=== PATIENT | female | born 1960 | race Caucasian/White ===

== ENCOUNTER 2018-08-24 10:27 | Inpatient (IN) ==
[2018-08-24 11:33] LABS: Baso % (Auto) 0.4 % (0.0-2.0); Eos % (Auto) 0.2 % (0.0-4.0); Hematocrit 35.6 % (35.0-46.0); Hemoglobin 11.3 gm/dL (11.6-15.3); Lymph # (Auto) 1.8 th/mm3 (1.0-4.8); Lymph % (Auto) 19.5 % (9.0-44.0); Mean Corpuscular HGB Conc 31.8 % (32.0-36.0); Mean Corpuscular Hemoglobin 25.4 pg (27.0-34.0); Mean Corpuscular Volume 79.9 fL (80.0-100.0); Mean Platelet Volume 7.7 fL (7.0-11.0); Mono # (Auto) 0.6 th/mm3 (0.0-0.9); Mono % (Auto) 6.8 % (0.0-8.0); Neut # (Auto) 6.6 th/mm3 (1.8-7.7); Neut % (Auto) 73.1 % (16.0-70.0); Platelet Count 334 th/mm3 (150-450); Red Blood Count 4.46 mil/mm3 (4.00-5.30); Red Cell Distribution Width 14.9 % (11.6-17.2)
[2018-08-24] MEDS: dilTIAZem Inj 125 MG in Sodium Chlor 0.9% Inj 100 ML IV.CONT PRN ×2 (11:35→22:23)
[2018-08-24 11:53] LABS: Bacteria,Urine Rare /hpf; Bilirubin,Urine Negative (Negative); Clarity,Urine Hazy (Clear); Color,Urine Yellow (Yellw/Straw); Glucose,Urine (UA) Negative (Negative); Hyaline Casts,Urine 7 /lpf (0-3); Leukocyte Esterase,Urine Negative (Negative); Mucus,Urine Few /lpf (Occasional); Nitrite,Urine Negative (Negative); Specific Gravity,Urine 1.013 (1.002-1.035); Squamous Epithelial Cell,Urine 8 /hpf (0-5)
[2018-08-24 11:53] LABS: Albumin 3.5 g/dL (3.4-5.0); Anion Gap 12 meq/L (5-15); Aspartate Aminotransferase 27 U/L (15-37); Blood Urea Nitrogen 10 mg/dL (7-18); Calcium 8.8 mg/dL (8.5-10.1); Carbon Dioxide 22.5 meq/L (21.0-32.0); Chloride 107 meq/L (98-107); Glomerular Filtration Rate Greater Than 89 mL/min (>89); Glucose,Random 90 mg/dL (74-106); Potassium 4.2 meq/L (3.5-5.1); Sodium 141 meq/L (136-145)
[2018-08-24 11:54] LABS: Alanine Aminotransferase 27 U/L (10-53)
[2018-08-24 11:58] LABS: Alkaline Phosphatase 166 U/L (45-117); Total Protein 7.5 g/dL (6.4-8.2)
[2018-08-24 12:00] LABS: Creatine Kinase 30 U/L (26-192)
--- NOTE | 2018-08-24 12:24 | XR ---
EXAM DATE: 08/24/2018 12:18 PM EDT AGE/SEX: 58 years / Female INDICATIONS: Shortness of breath. CLINICAL DATA: This is the patient's initial encounter. Patient reports that signs and symptoms have been present for 3 days and indicates a pain score of 0/10. MEDICAL/SURGICAL HISTORY: None. None. COMPARISON: No prior exams available for comparison. FINDINGS: Cardiomegaly. Clear lungs. Osseous structures are intact. CONCLUSION: Clear lungs. Electronically signed by: Conrad Davis MD 08/24/2018 12:23 PM EDT
[2018-08-24] MEDS ORDERED: Enoxaparin Inj 100 MG/ML Syringe SQ SCH (13:15)
--- NOTE | 2018-08-24 13:44 | P.HPIM ---
History of Present Illness Primary Care Physician: No Primary Care Physician Chief Complaint: Shortness of breath History of Present Illness: 58-year-old white female with no past medical history presents emergency room with a 2-1/2 history of worsening shortness of breath with exertion. She denies any associated palpitations nor chest pains with these symptoms. She has not had any associated dizziness nor any diaphoresis with the symptoms. She denies any underlying cough nor any chills or fevers. She also reports 2- week history of increasing swelling of the lower extremities. She denies symptoms of PND and reports that she does sleep in a angle but for chronically to relieve heartburn. She denies any previous cardiac history. - Diagnosis (1) Atrial fibrillation, new onset (2) Hypertensive urgency (3) Morbid obesity Review of Systems All other systems reviewed negative except as stated in HPI PMFSH - History History Provided By: Patient - Medical History Medical History: Medical History (Last Updated 08/24/18 @ 11:05 by Monse Zhang) Patient denies medical problems - Surgical History Surgical History: Surgical History (Last Updated 08/24/18 @ 11:05 by Monse Zhang) Hx of tonsillectomy - Family History Family History: Family History (Last Updated 08/24/18 @ 13:37 by Renetta Leon MD) Other Family history not known due to adoption - Social History I have reviewed the patient's Social History: Yes - Tobacco History Second Hand Smoke Exposure: No Smoking Status: Never smoker - Alcohol History How Often Do You Have a Drink Containing Alcohol: 2 to 4 times a month - Travel History Recent Travel in the [place] Within the Last 8 Weeks: No Recent Travel Out of the Country Within the Last 8 Weeks: No - Immunization History Tetanus Immunization: Unsure Medications and Allergies Active Medications: Active Medications Aspirin (Aspirin Chew) 81 mg PO DAILY JAVIER Enoxaparin Sodium (Lovenox Inj) 140 mg SQ Q12H JAVIER Diltiazem HCl 125 mg/ Sodium (Chloride) 125 mls @ 5 mls/hr IV.CONT TITRATE PRN ; Protocol PRN Reason: Per Protocol Last Titration: 08/24/18 12:16 Dose: 10 mg/hr, 10 mls/hr Metoprolol Tartrate (Lopressor) 25 mg PO BID JAVIER Sodium Chloride (Ns Flush) 2 ml IV.FLUSH BID JAVIER Sodium Chloride (Ns Flush) 2 ml IV.FLUSH PRN PRN PRN Reason: FLUSH AFTER USING IV ACCESS Allergies Allergy/AdvReac Type Severity Reaction Status Date / Time No Known Allergies Allergy Verified 08/24/18 11:04 Home Medications Medication Instructions Recorded Confirmed Type biotin 1,000 mcg PO DAILY 08/24/18 08/24/18 History Exam Vital signs: Vital Signs 08/24/18 10:29 08/24/18 10:34 08/24/18 11:07 Temperature 98.5 F Pulse Rate 136 H 108 H Respiratory Rate 20 18 Blood Pressure 231/91 H 185/73 H Pulse Oximetry 96 96 98 Intake & Output 08/23/18 08/24/18 08/24/18 18:59 06:59 18:59 Weight 136.078 kg Narrative: GENERAL: Well-nourished well-developed obese white female laying in a stretcher sitting up in no acute distress SKIN: Warm and dry. HEAD: Atraumatic. Normocephalic. EYES: Pupils equal and round. No scleral icterus. No injection or drainage. ENT: No nasal bleeding or discharge. Mucous membranes pink and moist. NECK: Trachea midline. No JVD. CARDIOVASCULAR: Irregular rate and tachycardic rhythm. RESPIRATORY: No accessory muscle use. Clear to auscultation. Breath sounds equal bilaterally. GASTROINTESTINAL: Abdomen soft, non-tender, nondistended. Hepatic and splenic margins not palpable. Normoactive bowel sounds MUSCULOSKELETAL: Extremities without clubbing, cyanosis, 1+ edema NEUROLOGICAL: Awake and alert to person place time situation. No obvious cranial nerve deficits. Motor grossly within normal limits. Five out of 5 muscle strength in the arms and legs. Normal speech. PSYCHIATRIC: Appropriate mood and affect; insight and judgment normal. Results - Labs CBC & Chem 7: 08/24/18 11:14 08/24/18 11:14 Labs: Short CBC 08/24/18 Range/Units 11:14 WBC 9.0 (4.0-11.0) th/mm3 Hgb 11.3 L (11.6-15.3) gm/dL Hct 35.6 (35.0-46.0) % Plt Count 334 (150-450) th/mm3 BMP 08/24/18 11:14 Sodium 141 Potassium 4.2 Chloride 107 Carbon Dioxide 22.5 BUN 10 Creatinine 0.54 Calcium 8.8 Cardiac Enzymes 08/24/18 Range/Units 11:14 Total Creatine Kinase 30 (26-192) U/L Troponin I Less than 0.02 L (0.02-0.05) ng/mL Liver Function 08/24/18 Range/Units 11:14 Total Bilirubin 0.7 (0.2-1.0) mg/dL AST 27 (15-37) U/L ALT 27 (10-53) U/L Alkaline Phosphatase 166 H (45-117) U/L Albumin 3.5 (3.4-5.0) g/dL Urine 08/24/18 Range/Units 11:30 Urine Color Yellow (Yellw/Straw) Urine Clarity Hazy H (Clear) Urine pH 5.0 (5.0-8.5) Ur Specific [place] 1.013 (1.002-1.035) Urine Protein 30 H (Neg-Trace) mg/dL Urine Glucose (UA) Negative (Negative) mg/dL - Imaging Impressions Chest X-Ray 08/24/18 11:07 CONCLUSION: Clear lungs. - ECG Attestation: I personally reviewed and interpreted this ECG as follows: Prior ECG tracings: not available for review Interpretation: Atrial fibrillation rapid ventricular response 136 Caprini VTE Risk Assessment Caprini VTE Risk Assessment: Moderate/High Risk (score >= 2) Caprini Risk Assessment Model: Point Value = 1 Point Value = 2 Point Value = 3 Point Value = 5 Age 41-60 Minor surgery BMI > 25 kg/m2 Swollen legs Varicose veins or History of unexplained or recurrent spontaneous Oral contraceptives or hormone replacement Sepsis (< 1 month) Serious lung disease, including pneumonia (< 1 month) Abnormal pulmonary function Acute myocardial infarction Congestive heart failure (< 1 month) History of inflammatory bowel disease Medical patient at bed rest Age 61-74 Arthroscopic surgery Major open surgery (> 45 min) Laparoscopic surgery (> 45 min) Malignancy Confined to bed (> 72 hours) Immobilizing plaster cast Central venous access Age >= 75 History of VTE Family history of VTE Factor V Leiden Prothrombin [id number] Lupus anticoagulant Anticardiolipin antibodies Elevated serum homocysteine Heparin-induced thrombocytopenia Other congenital or acquired thrombophilia Stroke (< 1 month) Elective arthroplasty Hip, pelvis, or leg fracture Acute spinal cord injury (< 1 month) Prophylaxis Regimen: Total Risk Factor Score Risk Level Prophylaxis Regimen 0-1 Low Early ambulation 2 Moderate Order ONE of the following: *Sequential Compression Device (SCD) *Heparin 5000 units SQ BID 3-4 Higher Order ONE of the following medications: *Heparin 5000 units SQ TID *Enoxaparin/Lovenox 40 mg SQ daily (WT < 150 kg, CrCl > 30 mL/min) *Enoxaparin/Lovenox 30 mg SQ daily (WT < 150 kg, CrCl > 10-29 mL/min) *Enoxaparin/Lovenox 30 mg SQ BID (WT < 150 kg, CrCl > 30 mL/min) AND/OR *Sequential Compression Device (SCD) 5 or more Highest Order ONE of the following medications: *Heparin 5000 units SQ TID (Preferred with Epidurals) *Enoxaparin/Lovenox 40 mg SQ daily (WT < 150 kg, CrCl > 30 mL/min) *Enoxaparin/Lovenox 30 mg SQ daily (WT < 150 kg, CrCl > 10-29 mL/min) *Enoxaparin/Lovenox 30 mg SQ BID (WT < 150 kg, CrCl > 30 mL/min) AND *Sequential Compression Device (SCD) Assessment and Plan - Assessment (1) Atrial fibrillation, new onset Code(s): I48.91 - Unspecified atrial fibrillation Status: Acute (2) Hypertensive urgency Code(s): I16.0 - Hypertensive urgency Status: Acute (3) Morbid obesity Code(s): E66.01 - Morbid (severe) obesity due to excess calories Status: Chronic - Plan 58-year-old white female with no past medical history presents emergency room with a 2-1/2 history of increased shortness of breath 1. New onset of atrial fibrillation with rapid ventricular rate. Cardizem drip has been initiated for rate control. Consult cardiology for further recommendations. Will obtain serial cardiac enzymes, start metoprolol p.o., Lovenox. 2. Hypertensive urgency -Cardizem drip has been initiated, will also start p.o. lisinopril. 3. Morbid obesityweight loss counseling 4. mild microcytic anemia-check iron panel, monitor hemoglobin on anticoagulation 4. DVT prophylaxisLovenox
[2018-08-24] MEDS ORDERED: Enoxaparin Inj 150 MG/ML Syringe SQ SCH (13:45)
[2018-08-24] MEDS ORDERED: Bisacodyl 10 MG Supp RECTAL PRN (13:46)
[2018-08-24] MEDS: Lisinopril 10 MG Tablet PO SCH (14:20)
--- NOTE | 2018-08-24 14:45 | ED ---
HPI General Chief Complaint: Shortness of Breath/Dyspnea Stated Complaint: SOB Time Seen by Provider: 08/24/18 10:48 History of Present Illness This is a 58-year-old female with no significant past medical history, presents today with complaints of 2-1/2 weeks of shortness of breath and dyspnea on exertion. Patient denies any chest pain, chest pressure. She denies any palpitations. She states that over the last 2 and half weeks she can only walk 20 feet before becoming short of breath. The patient was noted to have a heart rate in the 140s in triage. She is also noted to be hypertensive. She denies any headache. She denies any dizziness. There are no other complaints. Related Data Home Medications Medication Instructions Recorded Confirmed biotin 1,000 mcg PO DAILY 08/24/18 08/24/18 Allergies Allergy/AdvReac Type Severity Reaction Status Date / Time No Known Allergies Allergy Verified 08/24/18 11:04 Review of Systems ROS: all other systems reviewed are negative Constitutional Reports chills Eyes Reports system reviewed and no additional complaints, except as docu ENT Reports system reviewed and no additional complaints, except as docu Cardiovascular Reports pedal edema, Reports edema, Reports irregular heart rhythm and Reports dyspnea Respiratory Denies chest congestion, Denies cough, Denies pain on inspiration, Reports dyspnea and Reports dyspnea on exertion Gastrointestinal Reports system reviewed and no additional complaints, except as docu Genitourinary Reports system reviewed and no additional complaints, except as docu Musculoskeletal Denies back pain and Denies neck pain Neurologic Reports system reviewed and no additional complaints, except as docu [facility] Medical History Medical History Patient denies medical problems (Acute) Surgical History Surgical History Hx of tonsillectomy (Acute) Family History Family History Other Family history not known due to adoption Social History Social History Second Hand Smoke Exposure: No Smoking Status: Never smoker How Often Do You Have a Drink Containing Alcohol: 2 to 4 times a month Recent Travel in USA within the Last 8 Weeks: No Recent Out of Country Travel within the Last 8 Weeks: No Immunization History Tetanus Immunization: Unsure Exam Narrative Exam Narrative: GENERAL: Obese female in no acute respiratory distress. SKIN: Focused skin assessment warm/dry. HEAD: Atraumatic. Normocephalic. EYES: No scleral icterus. No injection or drainage. ENT: No nasal bleeding or discharge. Mucous membranes pink and moist. NECK: Trachea midline. No obvious JVD. Supple. CARDIOVASCULAR: Irregularly regular with a rate in the 140s. No murmur appreciated. RESPIRATORY: No accessory muscle use. Clear to auscultation. Breath sounds equal bilaterally. GASTROINTESTINAL: Abdomen soft, non-tender, nondistended. Hepatic and splenic margins not palpable. MUSCULOSKELETAL: No obvious deformities. No clubbing. No cyanosis. No edema. NEUROLOGICAL: Awake and alert. No obvious cranial nerve deficits. Motor grossly within normal limits. Normal speech. Course Initial Documented Vital Signs Temperature 98.5 F 08/24/18 10:29 Pulse Rate 136 H 08/24/18 10:29 Respiratory Rate 20 08/24/18 10:29 Blood Pressure 231/91 H 08/24/18 10:29 Pulse Oximetry 96 08/24/18 10:29 Last Documented Vital Signs Temperature 98.5 F 08/24/18 10:29 Pulse Rate 108 H 08/24/18 10:34 Respiratory Rate 18 08/24/18 10:34 Blood Pressure 185/73 H 08/24/18 10:34 Pulse Oximetry 98 08/24/18 11:07 Medical Decision Making [facility] Narrative Medical decision making narrative: 58-year-old female presents today with complaints of shortness of breath times 2-1/2 weeks. Patient has new onset A. fib with RVR. Patient also had uncontrolled hypertension. She has been started on a diltiazem drip. Her heart rates come down into the low 100s. She was discussed with Dr. Elena Leon. She will have further studies when and admitted. Medical Screen Exam Complete: Yes Emergency Medical Condition: Yes Differential Diagnosis Differential Diagnosis: New onset A. fib versus hypertensive urgency versus metabolic derangement Lab Data Result diagrams: 08/24/18 11:14 08/24/18 11:14 Lab Results 08/24/18 08/24/18 08/24/18 Range/Units 11:14 11:14 11:30 WBC 9.0 (4.0-11.0) th/mm3 RBC 4.46 (4.00-5.30) mil/mm3 Hgb 11.3 L (11.6-15.3) gm/dL Hct 35.6 (35.0-46.0) % MCV 79.9 L (80.0-100.0) fL MCH 25.4 L (27.0-34.0) pg MCHC 31.8 L (32.0-36.0) % RDW 14.9 (11.6-17.2) % Plt Count 334 (150-450) th/mm3 MPV 7.7 (7.0-11.0) fL Neut % (Auto) 73.1 H (16.0-70.0) % Lymph % (Auto) 19.5 (9.0-44.0) % [place] % (Auto) 6.8 (0.0-8.0) % Eos % (Auto) 0.2 (0.0-4.0) % Baso % (Auto) 0.4 (0.0-2.0) % Neut # (Auto) 6.6 (1.8-7.7) th/mm3 Lymph # (Auto) 1.8 (1.0-4.8) th/mm3 [place] # (Auto) 0.6 (0.0-0.9) th/mm3 Eos # (Auto) 0.0 (0.0-0.4) th/mm3 Baso # (Auto) 0.0 (0.0-0.2) th/mm3 WBC Differential . Differential Comment Auto diff final Sodium 141 (136-145) meq/L Potassium 4.2 (3.5-5.1) meq/L Chloride 107 (98-107) meq/L Carbon Dioxide 22.5 (21.0-32.0) meq/L Anion Gap 12 (5-15) meq/L BUN 10 (7-18) mg/dL Creatinine 0.54 (0.50-1.00) mg/dL Estimated GFR Greater than 89 (>89) mL/min Random Glucose 90 (74-106) mg/dL Calcium 8.8 (8.5-10.1) mg/dL Total Bilirubin 0.7 (0.2-1.0) mg/dL AST 27 (15-37) U/L ALT 27 (10-53) U/L Alkaline Phosphatase 166 H (45-117) U/L Total Creatine Kinase 30 (26-192) U/L Troponin I Less than 0.02 L (0.02-0.05) ng/mL Total Protein 7.5 (6.4-8.2) g/dL Albumin 3.5 (3.4-5.0) g/dL Urine Color Yellow (Yellw/Straw) Urine Clarity Hazy H (Clear) Urine pH 5.0 (5.0-8.5) Ur Specific [place] 1.013 (1.002-1.035) Urine Protein 30 H (Neg-Trace) mg/dL Urine Glucose (UA) Negative (Negative) mg/dL Urine Ketones Negative (Negative) mg/dL Urine Occult Blood Small H (Negative) Urine Nitrate Negative (Negative) Urine Bilirubin Negative (Negative) Urine Urobilinogen Less than 2 (Less than 2) mg/dL Ur Leukocyte Esterase Negative (Negative) Urine RBC Less than 1 (0-3) /hpf Urine WBC 3 (0-5) /hpf Ur Squamous Epith Cells 8 (0-5) /hpf Urine Bacteria Rare H (None) /hpf Hyaline Casts 7 (0-3) /lpf Urine Mucus Few H (Occasional) /lpf Micro UA Comment Culture not ind Ur Microscopic Review Not Reportable Urine Culture Comments Culture not ind Imaging Data Radiologist's impression: Chest X-Ray 08/24/18 11:07 CONCLUSION: Clear lungs. Discharge Plan Discharge Disposition Patient Disposition: 30 Still Patient Discharge Details Diagnosis: Atrial fibrillation, new onset, Hypertensive urgency, Morbid obesity Physicians Team ED Provider: Gael Motley Primary Care Provider: Primary Care Inna Azevedo Attending Provider: Renetta Leon Other Providers: Chema Jane Discharge Interventions Interventions: Vital Signs Last Done: 08/24/18 10:34 Status ED Status: Admitted Patient
--- NOTE | 2018-08-24 16:37 | ECHRPT ---
Indication: AFIB/FLUTTER CONCLUSIONS Left ventricle is on the upper limits of normal. The left ventricular systolic function is low normal with an estimated ejection fraction in the rang e of 50- 55%. [id number] mitral valve regurgitation. There is trace tricuspid valve regurgitation. BP: / HR: Rhythm: Atrial fibrillation MEASUREMENTS (Male / Female) Normal Values Technical Quality:Technically difficult study 2D ECHO LV Diastolic Diameter PLAX 6.0 cm 4.2 - 5.9 / 3.9 - 5.3 cm LV Systolic Diameter PLAX 4.7 cm IVS Diastolic Thickness 1.0 cm 0.6 - 1.0 / 0.6 - 0.9 cm LVPW Diastolic Thickness 1.0 cm 0.6 - 1.0 / 0.6 - 0.9 cm LV Relative Wall Thickness 0.3 RV Internal Dim ED PLAX 2.6 cm LVOT Diameter 1.7 cm Aortic Root Diameter 2.7 cm LA Systolic Diameter LX 3.5 cm 3.0 - 4.0 / 2.7 - 3.8 cm M-MODE AV Cusp Separation MM 1.4 cm DOPPLER AV Peak Velocity 236.0 cm/s AV Peak Gradient 22.3 mmHg AV Mean Gradient 10.0 mmHg AV Velocity Time Integral 38.6 cm LVOT Peak Velocity 128.0 cm/s LVOT Peak Gradient 6.6 mmHg LVOT Velocity Time Integral 20.5 cm AV Area Cont Eq vti 1.2 cm AV Area Cont Eq pk 1.2 cm Mitral E Point Velocity 125.0 cm/s LV E' Lateral Velocity 11.3 cm/s Mitral E to LV E' Lateral Ratio 11.1 LV E' Septal Velocity 11.6 cm/s Mitral E to LV E' Septal Ratio 10.8 TR Peak Velocity 182.3 cm/s TR Peak Gradient 13.3 mmHg Right Atrial Pressure 10.0 mmHg Pulmonary Artery Systolic Pressu 23.3 mmHg Right Ventricular Systolic Press 23.3 mmHg PV Peak Velocity 107.0 cm/s PV Peak Gradient 4.6 mmHg FINDINGS LEFT VENTRICLE The left ventricular systolic function is normal with an estimated ejection fraction in the range of 60-65%. Slightly dilated left ventricle. RIGHT VENTRICLE The right ventricle was not well visualized. LEFT ATRIUM The left atrial size is normal. RIGHT ATRIUM The right atrial size is normal. ATRIAL SEPTUM The interatrial septum not well visualized. AORTA The aortic root and proximal ascending aorta are normal in size on limited imaging. MITRAL VALVE Mild mitral annular calcification. [id number] mitral valve regurgitation. AORTIC VALVE Mild aortic valve stenosis. Trileaflet aortic valve. TRICUSPID VALVE There is trace tricuspid valve regurgitation. PULMONARY VALVE No pulmonary valve regurgitation or stenosis. VESSELS The inferior vena cava was not well visualized. PERICARDIUM No pericardial effusion. Chema Jane MD (Electronically Signed) Final Date:24 August 2018 16:37
[2018-08-24 16:53] LABS: % Iron Saturation 13.2 % (20-50); Iron 43 mcg/dL (50-170); Total Iron Binding Capacity 326 mcg/dL (250-450)
[2018-08-24 16:54] LABS: Chol/HDL Ratio 2.08 Ratio; HDL Cholesterol 45.5 mg/dL (40.0-60.0)
[2018-08-24 16:56] LABS: Ferritin 67 ng/mL (8-252)
[2018-08-24] MEDS: dilTIAZem 60 MG Tablet PO SCH ×2 (17:16→20:43)
--- NOTE | 2018-08-24 19:50 | MB ---
cc: Chema Jane MD DATE: 08/24/2018 REASON FOR CONSULTATION: Rapid atrial fibrillation. HISTORY OF PRESENT ILLNESS: The patient is a 58-year-old woman admitted to the hospital with rapid atrial fibrillation. The patient has health insurance, but has not been to a doctor in over 20 years. I asked her why and she said that she did not use to have insurance and when she got insurance, she just was not in the habit of seeing doctors, so she did not go. For the past 2-1/2 weeks, she has been noticing progressive shortness of breath and dyspnea on exertion with some mild edema. She was not aware of her heart rate. When she came in, she was in rapid atrial fibrillation. Her blood pressure is also markedly elevated, but she has not had that checked either. She has signs of sleep apnea with snoring and frequent napping for the last couple of weeks, but has never been tested for sleep apnea. Denies any anginal type symptoms. Really only symptom she has noticed was shortness of breath. She does not smoke. She has a couple glasses of wine on Fridays and 3-4 rum and Cokes on Saturdays, but does not drink during the week. PAST MEDICAL HISTORY: Unremarkable because she has not been the doctors. PAST SURGICAL HISTORY: Includes tonsillectomy. FAMILY HISTORY: She is adopted. REVIEW OF SYSTEMS: Include nonbleeding hemorrhoids, painful right knee and occasional low back pain. REVIEW OF SYSTEMS: Otherwise negative. 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 She is an 18-year long committed relationship with a man named, Earl, that I am allowed to release medical information to. PHYSICAL EXAMINATION: GENERAL: Shows a morbidly obese, white female in no acute distress. VITAL SIGNS: Charted. She has been hypertensive and tachycardic. HEENT: Unremarkable. NECK: Negative for JVD. There are no bruits. CHEST: Diminished, but clear to auscultation. CARDIOVASCULAR: S1, S2, irregularly irregular and tachycardic, but no murmurs or gallops. ABDOMEN: Morbidly obese. Masses or organomegaly cannot be appreciated. EXTREMITIES: Show no clubbing, cyanosis or edema. Pulses are intact. LABORATORY DATA: EKG shows atrial fibrillation with a heart rate of 136. Chest x-ray shows cardiomegaly. Echocardiogram has been done, but I will have to read that later. Troponins negative. Creatinine is normal. Hematocrit is 35.6 but microcytic with iron values pending. Alkaline phosphatase elevated, but the remaining liver tests were normal. IMPRESSION: Atrial fibrillation, newly recognized. Duration is unclear. She has been symptomatic for at least 2-1/2 weeks. She probably has underlying hypertension. PLAN: We will review her echocardiogram. For now, I am going to start her on Eliquis, discontinue the Lovenox and discontinue the aspirin. I am going to start Diltiazem 60 mg every 6 hours and tomorrow morning and I will decide what once a day dose to initiate depending on heart rate response. I agree with metoprolol 25 b.i.d. Check lipids values. Thyroid values pending. Anticipated hospital stay is at least a couple of days. Further therapy to be determined. MD ALICIA Byrne/joão , 04:13 PM , 04:24 PM
[2018-08-24] MEDS: Metoprolol Tartrate 25 MG Tablet PO SCH (22:25)
[2018-08-25 06:59] LABS: Baso % (Auto) 0.4 % (0.0-2.0); Eos % (Auto) 0.1 % (0.0-4.0); Hematocrit 32.9 % (35.0-46.0); Hemoglobin 10.7 gm/dL (11.6-15.3); Lymph # (Auto) 1.9 th/mm3 (1.0-4.8); Lymph % (Auto) 22.5 % (9.0-44.0); Mean Corpuscular HGB Conc 32.4 % (32.0-36.0); Mean Corpuscular Hemoglobin 25.8 pg (27.0-34.0); Mean Corpuscular Volume 79.8 fL (80.0-100.0); Mean Platelet Volume 7.9 fL (7.0-11.0); Mono # (Auto) 0.7 th/mm3 (0.0-0.9); Mono % (Auto) 8.6 % (0.0-8.0); Neut # (Auto) 5.8 th/mm3 (1.8-7.7); Neut % (Auto) 68.4 % (16.0-70.0); Platelet Count 302 th/mm3 (150-450); Red Blood Count 4.13 mil/mm3 (4.00-5.30); Red Cell Distribution Width 15.1 % (11.6-17.2); White Blood Count 8.5 th/mm3 (4.0-11.0)
[2018-08-25 07:36] LABS: Anion Gap 9 meq/L (5-15); Blood Urea Nitrogen 14 mg/dL (7-18); Calcium 8.2 mg/dL (8.5-10.1); Carbon Dioxide 25.4 meq/L (21.0-32.0); Chloride 104 meq/L (98-107); Glomerular Filtration Rate Greater Than 89 mL/min (>89); Glucose,Random 96 mg/dL (74-106); Potassium 4.2 meq/L (3.5-5.1); Sodium 138 meq/L (136-145)
[2018-08-25] MEDS: Lisinopril 10 MG Tablet PO SCH (08:22)
[2018-08-25] MEDS: dilTIAZem 60 MG Tablet PO SCH ×2 (08:23→13:01)
[2018-08-25 08:44] VITALS: RESP 20
[2018-08-25] MEDS: Metoprolol Tartrate 25 MG Tablet PO SCH (10:09)
--- NOTE | 2018-08-25 12:59 | P.PN ---
Subjective Interval history: Nursing reports that the Cardizem drip was stopped shortly after 11 AM this morning the patient's heart rate in the 70s. Patient denies any shortness of breath at rest, only reports some shortness of breath when she ambulates. Reports having mildly puffy feet at most, otherwise says that her legs are large on a good day anyway. Physical Exam Vital signs: Vital Signs 08/24/18 14:00 08/24/18 16:00 08/24/18 19:57 Temperature 97.6 F 97.9 F Pulse Rate 96 H 82 79 Respiratory Rate 18 18 20 Blood Pressure 178/70 H 171/81 H 155/77 H Pulse Oximetry 96 95 08/24/18 20:00 08/24/18 22:26 08/25/18 00:00 Temperature 98.1 F Pulse Rate 91 H 86 76 Respiratory Rate 20 16 Blood Pressure 151/68 H 120/80 Pulse Oximetry 96 95 08/25/18 04:00 08/25/18 05:56 08/25/18 08:00 Temperature 97.9 F 97.3 F L Pulse Rate 80 95 H Respiratory Rate 18 20 Blood Pressure 156/76 H 160/81 H Pulse Oximetry 96 97 95 08/25/18 09:52 Temperature Pulse Rate Respiratory Rate Blood Pressure Pulse Oximetry 95 Intake & Output 08/24/18 08/25/18 08/25/18 18:59 06:59 18:59 Intake Total 665 / 665 Balance 665 / 665 Weight 155 kg 156.6 kg Intake: IV 155 / 155 Cardizem Inj 125 MG In NS Inj 155 / 155 100 ML @ 5 MG/HR 5 mls/hr IV. CONT TITRATE PRN Rx#:[id number] Oral 510 / 510 Other: # Voids 2 Date of Last Bowel Movement 08/24/18 Weight On Admission 155 kg Narrative: Trace bilateral pedal edema Clear lungs bilaterally, unlabored breathing Heart sounds regular rate rhythm, no murmurs Sitting up in chair, no acute distress Results - Labs CBC & Chem 7: 08/25/18 05:55 08/25/18 05:55 Laboratory Results - last 24 hr 08/24/18 08/24/18 08/24/18 11:14 11:14 22:00 WBC RBC Hgb Hct MCV MCH MCHC RDW Plt Count MPV Neut % (Auto) Lymph % (Auto) [place] % (Auto) Eos % (Auto) Baso % (Auto) Neut # (Auto) Lymph # (Auto) [place] # (Auto) Eos # (Auto) Baso # (Auto) WBC Differential Differential Comment Sodium Potassium Chloride Carbon Dioxide Anion Gap BUN Creatinine Estimated GFR Random Glucose Calcium Iron 43 L TIBC 326 % Saturation 13.2 L Ferritin 67 Troponin I Less than 0.02 L Less than 0.02 L Triglycerides 85 Cholesterol 95 L LDL Cholesterol, Calc 33 HDL Cholesterol 45.5 Cholesterol/HDL Ratio 2.08 08/25/18 08/25/18 08/25/18 01:20 05:55 05:55 WBC 8.5 RBC 4.13 Hgb 10.7 L Hct 32.9 L MCV 79.8 L MCH 25.8 L MCHC 32.4 RDW 15.1 Plt Count 302 MPV 7.9 Neut % (Auto) 68.4 Lymph % (Auto) 22.5 [place] % (Auto) 8.6 H Eos % (Auto) 0.1 Baso % (Auto) 0.4 Neut # (Auto) 5.8 Lymph # (Auto) 1.9 [place] # (Auto) 0.7 Eos # (Auto) 0.0 Baso # (Auto) 0.0 WBC Differential . Differential Comment Auto diff final Sodium 138 Potassium 4.2 Chloride 104 Carbon Dioxide 25.4 Anion Gap 9 BUN 14 Creatinine 0.51 Estimated GFR Greater than 89 Random Glucose 96 Calcium 8.2 L Iron TIBC % Saturation Ferritin Troponin I Less than 0.02 L Triglycerides Cholesterol LDL Cholesterol, Calc HDL Cholesterol Cholesterol/HDL Ratio Assessment and Plan - Assessment (1) Atrial fibrillation, new onset Code(s): I48.91 - Unspecified atrial fibrillation Status: Acute (2) Hypertensive urgency Code(s): I16.0 - Hypertensive urgency Status: Acute (3) Morbid obesity Code(s): E66.01 - Morbid (severe) obesity due to excess calories Status: Chronic - Plan 58-year-old white female admitted for A. fib with RVR A. fib with RVR Weaned off of diltiazem drip, heart rate now in the 70s. On oral diltiazem 60 mg 4 times daily and Lopressor 25 mg twice daily. Started on Eliquis yesterday. Cardiology following. Hypertension Subtle lower extremity edema -Continue lisinopril from yesterday as well as beta-karoline and calcium channel karoline -Echo shows at least an EF of 50%, mildly dilated left ventricle. With minimal edema in the feet, will give her a one-time dose of IV Lasix. Patient looking forward to discharge. Awaiting cardiac clearance with final rate control dosage recommendations. Addendum: Patient has been cleared by cardiology for discharge with close follow -up outpatient. Patient has met maximal benefit from hospitalization is clinically stable for discharge.
[2018-08-25 13:01] VITALS: BP 146/63; TEMP 97.7; O2SAT 96
[2018-08-25 14:07] VITALS: PULSE 72
--- NOTE | 2018-08-25 15:38 | P.PNCA ---
Subjective Interval history: SOB with exertion Medications and Allergies Active Medications: Active Medications Al Hydroxide/Mg Hydroxide (Milk Of Magnesia Liq) 30 ml PO Q12H PRN PRN Reason: Mild Constipation Apixaban (Eliquis) 5 mg PO BID [facility] Last Admin: 08/25/18 08:22 Dose: 5 mg Bisacodyl (Dulcolax Supp) 10 mg RECTAL DAILY PRN PRN Reason: SEVERE CONSITIPATION Diltiazem HCl (Cardizem Cd 24hr) 180 mg PO BID [facility] Enalaprilat (Vasotec Inj) 1.25 mg IV.PUSH Q6H PRN PRN Reason: SEE LABEL COMMENTS Ferrous Sulfate (Ferosul) 325 mg PO DAILY [facility] Hydrochlorothiazide (Microzide) 12.5 mg PO DAILY [facility] Lactulose (Lactulose Liq) 30 ml PO DAILY PRN PRN Reason: SEVERE CONSITIPATION Lisinopril (Prinivil) 10 mg PO DAILY [facility] Last Admin: 08/25/18 08:22 Dose: 10 mg Metoprolol Tartrate (Lopressor) 25 mg PO BID [facility] Last Admin: 08/25/18 10:09 Dose: 25 mg Sennosides (Senokot) 17.2 mg PO Q12H PRN PRN Reason: Moderate Constipation Sodium Chloride (Ns Flush) 2 ml IV.FLUSH BID [facility] Last Admin: 08/25/18 10:09 Dose: 2 ml Sodium Chloride (Ns Flush) 2 ml IV.FLUSH PRN PRN PRN Reason: FLUSH AFTER USING IV ACCESS Allergies Allergy/AdvReac Type Severity Reaction Status Date / Time No Known Allergies Allergy Verified 08/24/18 11:04 Home Medications Medication Instructions Recorded Confirmed Type biotin 1,000 mcg PO DAILY 08/24/18 08/24/18 History Physical Exam Vital signs: Vital Signs 08/24/18 16:00 08/24/18 19:57 08/24/18 20:00 Temperature 97.6 F 97.9 F Pulse Rate 82 79 91 H Respiratory Rate 18 20 Blood Pressure 171/81 H 155/77 H Pulse Oximetry 95 08/24/18 22:26 08/25/18 00:00 08/25/18 04:00 Temperature 98.1 F 97.9 F Pulse Rate 86 76 80 Respiratory Rate 20 16 18 Blood Pressure 151/68 H 120/80 156/76 H Pulse Oximetry 96 95 96 08/25/18 05:56 08/25/18 08:00 08/25/18 09:52 Temperature 97.3 F L Pulse Rate 95 H Respiratory Rate 20 Blood Pressure 160/81 H Pulse Oximetry 97 95 95 08/25/18 12:00 Temperature 97.7 F Pulse Rate 72 Respiratory Rate 20 Blood Pressure 146/63 H Pulse Oximetry 96 Intake & Output 08/24/18 08/25/18 08/25/18 18:59 06:59 18:59 Intake Total 665 / 665 40 / 40 Balance 665 / 665 40 / 40 Weight 155 kg 156.6 kg Intake: IV 155 / 155 40 / 40 Cardizem Inj 125 MG In NS Inj 155 / 155 40 / 40 100 ML @ 5 MG/HR 5 mls/hr IV. CONT TITRATE PRN Rx#:[id number] Oral 510 / 510 Other: # Voids 2 Date of Last Bowel Movement 08/24/18 Weight On Admission 155 kg Narrative: Alert, NAD Chest CTA CV S1S2 irr irr Abd obese, soft Ext edema trace at most Results 08/25/18 05:55 08/25/18 05:55 Cardiac Enzymes 08/24/18 08/24/18 08/24/18 Range/Units 11:14 11:14 22:00 AST 27 (15-37) U/L Troponin I Less than 0.02 L Less than 0.02 L Less than 0.02 L (0.02-0.05) ng/mL 08/25/18 Range/Units 01:20 AST (15-37) U/L Troponin I Less than 0.02 L (0.02-0.05) ng/mL Lipids 08/24/18 Range/Units 11:14 Triglycerides 85 (42-150) mg/dL Cholesterol 95 L (120-200) mg/dL HDL Cholesterol 45.5 (40.0-60.0) mg/dL Cholesterol/HDL Ratio 2.08 Ratio CBC 08/24/18 08/25/18 Range/Units 11:14 05:55 WBC 9.0 8.5 (4.0-11.0) th/mm3 RBC 4.46 4.13 (4.00-5.30) mil/mm3 Hgb 11.3 L 10.7 L (11.6-15.3) gm/dL Hct 35.6 32.9 L (35.0-46.0) % Plt Count 334 302 (150-450) th/mm3 Neut # (Auto) 6.6 5.8 (1.8-7.7) th/mm3 Lymph # (Auto) 1.8 1.9 (1.0-4.8) th/mm3 [place] # (Auto) 0.6 0.7 (0.0-0.9) th/mm3 Eos # (Auto) 0.0 0.0 (0.0-0.4) th/mm3 Baso # (Auto) 0.0 0.0 (0.0-0.2) th/mm3 Comprehensive Metabolic Panel 08/24/18 08/25/18 Range/Units 11:14 05:55 Sodium 141 138 (136-145) meq/L Potassium 4.2 4.2 (3.5-5.1) meq/L Chloride 107 104 (98-107) meq/L Carbon Dioxide 22.5 25.4 (21.0-32.0) meq/L BUN 10 14 (7-18) mg/dL Creatinine 0.54 0.51 (0.50-1.00) mg/dL Calcium 8.8 8.2 L (8.5-10.1) mg/dL AST 27 (15-37) U/L ALT 27 (10-53) U/L Alkaline Phosphatase 166 H (45-117) U/L Total Protein 7.5 (6.4-8.2) g/dL Albumin 3.5 (3.4-5.0) g/dL Intake and Output 08/25/18 08/25/18 08/25/18 06:59 14:59 22:59 Intake Total 540 / 540 40 / 40 Balance 540 / 540 40 / 40 Intake: IV 30 / 30 40 / 40 Cardizem Inj 125 MG In NS Inj 30 / 30 40 / 40 100 ML @ 5 MG/HR 5 mls/hr IV. CONT TITRATE PRN Rx#:[id number] Oral 510 / 510 Other: # Voids 2 Weight 156.6 kg - Imaging and Cardiology Imaging: Impressions Chest X-Ray 08/24/18 11:07 CONCLUSION: Clear lungs. Assessment and Plan - Assessment (1) Iron deficiency Code(s): E61.1 - Iron deficiency Status: Acute Plan: Start PO iron. Needs GI W/U as OP (2) Sleep apnea Code(s): G47.30 - Sleep apnea, unspecified Status: Acute Plan: Needs sleep study as OP (3) Atrial fibrillation, new onset Code(s): I48.91 - Unspecified atrial fibrillation Status: Acute Plan: Eliquis 5mg bid for CVA prevention. Metoprolol 25mg bid and Diltiazem 180mg bid for rate control. (4) Hypertensive urgency Code(s): I16.0 - Hypertensive urgency Status: Acute Plan: In addition to Dilt/ Metop: lisinopril 10mg and HCTZ 12.5 mg daily (5) Morbid obesity Code(s): E66.01 - Morbid (severe) obesity due to excess calories Status: Chronic - Plan OK with me to DC home with F/U OV. She is going to need a PCP, an apnea doctor ( to eval sleep apnea) and a GI doctor (to eval iron deficiency).
[2018-08-25] MEDS ORDERED: dilTIAZem CD 180 MG Capsule PO SCH (21:00)
[2018-08-26] MEDS ORDERED: Ferrous Sulfate 325 MG Tablet PO SCH (09:00)
--- NOTE | 2018-08-27 14:50 | ECG ---
Date Performed: 08/24/2018 Time Performed: 10:44:06 PTAGE: 58 years EKG: ATRIAL FIBRILLATION WITH RAPID VENTRICULAR RESPONSE POSSIBLE RIGHT VENTRICULAR CONDUCTION D [place] MINIMAL ST DEPRESSION ABNORMAL RHYTHM ECG NO PREVIOUS TRACING DOCTOR: Ray Smith Interpretating Date/Time 08/27/2018 14:45:10
== END 2018-08-25 17:54 | disposition home or self-care (01) ==
LOC: NEPC 10:27 → NEDA 13:47 → N04 16:35
PROVIDERS: ADMIT Hospitalist; ATTEND Hospitalist